=== PATIENT | female | born 1985 | race American Indian/Alaskan Native ===

== ENCOUNTER 2020-07-21 10:35 | Emergency (ER) | payer OTHER ==
--- NOTE | 2020-07-21 10:45 | Emergency Department Report ---
Blank Doc - Documentation Documentation: 34-year-old female that presents with n/v. This initial assessment/diagnostic orders/clinical plan/treatment(s) is/are subject to change based on patient's health status, clinical progression and re- assessment by fellow clinical providers in the ED. Further treatment and workup at subsequent clinical providers discretion. Patient/guardians urged not to elope from the ED as their condition may be serious if not clinically assessed and managed. Initial orders include: 1- Patient sent to [facility] for further evaluation and treatment 2- labs 3- UA
[2020-07-21 10:48] VITALS: BP 121/91
[2020-07-21 11:45] LABS: Bilirubin,Urine NEG (Negative); Blood,Urine NEG (Negative); Color,Urine Yellow (Yellow); Mucus,Urine FEW /HPF; Protein,Urine <15 mg/dL mg/dL (Negative); Urobilinogen,Urine < 2.0 mg/dL (<2.0)
[2020-07-21] MEDS ORDERED: ONDANSETRON 4 MG ODT TAB PO ONE (11:47)
--- NOTE | 2020-07-21 11:48 | Emergency Department Report ---
Vomiting/Diarrhea - HPI Chief Complaint: Nausea/Vomiting/Diarrhea Stated Complaint: VOMIT Time Seen by Provider: 07/21/20 10:44 Duration: 2 Days (For nausea) Severity: mild Nausea/Vomiting Severity: None Diarrhea Severity: None Pain Location: Suprapubic Pain Severity: None Symptoms: No Watery Diarrhea, No Bloody diarrhea, No Fever, No Able to Tolerate Fluids, No Recent Unusual Foods, No Recent Untreated Water, No Recent use of Antibiotics, No Family w/ Similar Symptoms, No Contacts w/ Similar Symptoms, No Rash, No Hematuria, No Recent URI Symptoms Other History: 34-year-old -[place] female with a past medical history of SVT presents to the emergency room for 2-day history of nausea and vomiting last night. Patient states that she went to work today and started vomiting everywhere. Patient states aggravating factors is eating anything and alleviating factors is not eating anything. Patient reports only mild abdominal pain is located in the suprapubic area. Patient denies any vaginal bleeding a little bit of vaginal discharge with a little bit of dysuria. She reports her last menstrual period was 07/11/2020 and is 2 para 2. Patient reports she has no known drug allergies currently takes no medications on a daily basis and does not have a primary care provider. ED Review of Systems ROS: Stated complaint: VOMIT Other details as noted in HPI Comment: All other systems reviewed and negative ED Past Medical Hx - Past Medical History Previous Medical History?: Yes Hx Hypertension: No Hx CVA: No Hx Heart Attack/AMI: No Hx Congestive Heart Failure: No Hx Diabetes: No Hx Deep Vein Thrombosis: No Hx Pulmonary Embolism: No Hx GERD: No Hx Liver Disease: No Hx Renal Disease: No Hx Sickle Cell Disease: No Hx Arthritis: No Hx Headaches / Migraines: No Hx Seizures: No Hx Kidney Stones: No Hx Psychiatric Treatment: No Hx Asthma: Yes Hx COPD: No Hx Tuberculosis: No Hx Dementia: No Hx HIV: No Additional medical history: SVT - Surgical History Past Surgical History?: Yes Hx Coronary Stent: No Hx Open Heart Surgery: No Hx Pacemaker: No Hx Internal Defibrillator: No Hx Cholecystectomy: No Hx Appendectomy: No Hx Breast Surgery: No - Social History Smoking Status: Never Smoker Substance Use Type: None - Medications Home Medications: Home Medications Medication Instructions Recorded Confirmed Last Taken Type Prednisone [predniSONE 10 mg 10 mg PO .TAPER #1 tab.ds.pk 12/25/15 Unknown Rx (6-Day Pack, 21 Tabs)] diphenhydrAMINE [Benadryl CAP] 25 mg PO Q6HR PRN #30 capsule 10/08/15 Unknown Rx Acetaminophen/Codeine [Tylenol #3] 1 tab PO Q6H PRN #20 tab 01/24/16 Unknown Rx Ibuprofen [Motrin] 600 mg PO Q8H PRN #30 tablet 01/24/16 Unknown Rx cephALEXin [Keflex] 500 mg PO Q6HR #40 capsule 01/24/16 Unknown Rx Ondansetron [Zofran Odt] 4 mg PO Q8HR #12 tab.rapdis 07/21/20 Unknown Rx Vomiting Diarrhea Exam - Exam General: Vital signs noted. No distress. Alert and acting appropriately. HEENT: Yes Moist Mucous Membranes, No Pharyngeal Erythema, No Pharyngeal Exudates, No Rhinorrhea, No Conjuctival Injection, No Frontal Tenderness, No Maxillary Tenderness Neck: No Adenopathy, No Rigidity Lungs: Yes Clear Lung Sounds, Yes Good Air Exchange, No Wheezes, No Stridor, No Cough, No Nasal Flaring, No Retractions, No Use of Accessory Muscles Heart exam: Regular: Yes, Murmur: No, Tachycardia: No Abdomen: Tenderness: Yes (Suprapubic), Peritoneal Signs: No, Distention: No, Hyperactive Bowel sounds: No Skin exam: Rash: No, Edema: No, Normal turgor: Yes Neurologic: Alert and oriented, no deficits. Musculoskeletal: Unremarkable. ED Course Vital Signs 07/21/20 10:47 Temperature 98.4 F Pulse Rate 91 H Respiratory 18 Rate Blood Pressure 121/91 O2 Sat by Pulse 100 Oximetry - Reevaluation(s) Reevaluation #1: 07/21/20 12:53 Patient has not vomited since being here in fast track. ED Medical Decision Making - Lab Data Result diagrams: 07/21/20 11:38 07/21/20 11:38 - Medical Decision Making 34-year-old -[place] female with a past medical history of SVT presents to the emergency room for 2-day history of nausea and vomiting last night. Patient states that she went to work today and started vomiting everywhere. Patient states aggravating factors is eating anything and alleviating factors is not eating anything. Patient reports only mild abdominal pain is located in the suprapubic area. Patient denies any vaginal bleeding a little bit of vaginal discharge with a little bit of dysuria. She reports her last menstrual period was 07/11/2020 and is 2 para 2. Patient reports she has no known drug allergies currently takes no medications on a daily basis and does not have a primary care provider. Patient's labs are stable. She responded well to the Zofran. I discussed with patient I will discharge home on Zofran increase her fluid intake advance her diet as tolerated and follow-up with her primary care provider. Critical care attestation.: If time is entered above; I have spent that time in minutes in the direct care of this critically ill patient, excluding procedure time. ED Disposition Clinical Impression: Acute nausea with nonbilious vomiting Disposition: - TO HOME OR SELFCARE Is pt being admited?: No Does the pt Need Aspirin: No Condition: Stable Instructions: Acute Nausea and Vomiting (ED) Additional Instructions: All your labs are stable. I recommend taking the Zofran as needed for the nausea and vomiting increase your fluid intake advance your diet as tolerated and follow-up with your primary care provider. Prescriptions: Ondansetron [Zofran Odt] 4 mg PO Q8HR #12 tab.rapdis Referrals: MINNA HUMPHREY MD [Primary Care Provider] - 3-5 Days Forms: Work/School Release Form(ED)
[2020-07-21 11:59] LABS: HCG Qualitative,Urine Negative (Negative)
[2020-07-21 12:04] LABS: Basophils % (Auto) 0.8 % (0.0-1.8); Eosinophils # (Auto) 0.1 K/mm3 (0.0-0.4); Eosinophils % (Auto) 1.3 % (0.0-4.3); Hematocrit 40.7 % (30.3-42.9); Hemoglobin 13.7 gm/dl (10.1-14.3); Lymphocytes # (Auto) 1.9 K/mm3 (1.2-5.4); Lymphocytes % (Auto) 30.8 % (13.4-35.0); Mean Corpuscular HGB Conc 34 % (30-34); Mean Corpuscular Volume 96 fl (79-97); Monocytes # (Auto) 0.5 K/mm3 (0.0-0.8); Monocytes % (Auto) 8.9 % (0.0-7.3); Platelet Count 296 K/mm3 (140-440); Red Blood Count 4.23 M/mm3 (3.65-5.03); Red Cell Distribution Width 14.7 % (13.2-15.2)
[2020-07-21 12:25] LABS: Alanine Aminotransferase 14 units/L (7-56); Albumin 4.1 g/dL (3.9-5); Blood Urea Nitrogen 10 mg/dL (7-17); Calcium 9.3 mg/dL (8.4-10.2); Hemolysis Index 10
[2020-07-21 12:26] LABS: BUN/Creatinine Ratio 14
== END 2020-07-21 13:42 | disposition home or self-care (01) ==
LOC: ED 10:35
DX: R11.2 Nausea with vomiting, unspecified (principal); J45.909 Unspecified asthma, uncomplicated; Z79.899 Other long term (current) drug therapy
CPT/HCPCS: 36415; 80053; 81001; 81025; 83690; 85025; 99283; Q0162

== ENCOUNTER 2020-09-13 17:21 | Emergency (ER) | payer OTHER ==
[2020-09-13 19:14] VITALS: BP 111/76
--- NOTE | 2020-09-13 20:16 | Event Note ---
ED Screening Note ED Screening Note: n/v that began two days ago states she has 2-3 episodes a day states she did have some diarrhea no abd pain no fever no blood in stool or vomit no dysuria no urinary frequency PMHx SVT no allergies to meds LNMP: 08/21/2020, unsure of This initial assessment/diagnostic orders/clinical plan/treatment(s) is/are subject to change based on patients health status, clinical progression and re- assessment by fellow clinical providers in the ED. Further treatment and workup at subsequent clinical providers discretion. Patient/guardian urged not to elope from the ED as their condition may be serious if not clinically assessed and managed. Initial orders include: labs, UA
[2020-09-13 21:01] LABS: Basophils % (Auto) 0.5 % (0.0-1.8); Eosinophils # (Auto) 0.2 K/mm3 (0.0-0.4); Eosinophils % (Auto) 2.9 % (0.0-4.3); Hematocrit 37.3 % (30.3-42.9); Lymphocytes # (Auto) 3.1 K/mm3 (1.2-5.4); Lymphocytes % (Auto) 42.2 % (13.4-35.0); Mean Corpuscular HGB Conc 35 % (30-34); Mean Corpuscular Volume 96 fl (79-97); Monocytes # (Auto) 0.7 K/mm3 (0.0-0.8); Monocytes % (Auto) 8.9 % (0.0-7.3); Platelet Count 245 K/mm3 (140-440); Red Blood Count 3.89 M/mm3 (3.65-5.03); Red Cell Distribution Width 13.9 % (13.2-15.2)
[2020-09-13 21:18] LABS: Alanine Aminotransferase 12 units/L (7-56); Albumin 4.1 g/dL (3.9-5); BUN/Creatinine Ratio 18; Blood Urea Nitrogen 14 mg/dL (7-17); Calcium 9.3 mg/dL (8.4-10.2); Hemolysis Index 5
[2020-09-13 22:28] LABS: Bacteria,Urine 4+ /HPF (Negative); Bilirubin,Urine NEG (Negative); Blood,Urine SM (Negative); Color,Urine Straw (Yellow); Protein,Urine <15 mg/dL mg/dL (Negative); Urobilinogen,Urine < 2.0 mg/dL (<2.0)
[2020-09-14] MEDS ORDERED: ONDANSETRON 4 MG ODT TAB PO STA (01:00)
[2020-09-14] MEDS ORDERED: HYOSCYAMINE SUBL 0.125 MG TAB SL ONE (01:00)
--- NOTE | 2020-09-14 01:02 | Emergency Department Report ---
ED N/V/D HPI - General Chief complaint: Nausea/Vomiting/Diarrhea Stated complaint: VOMIT/NAUSEA/FATIGUE Time Seen by Provider: 09/13/20 20:15 Source: patient Mode of arrival: Ambulatory Limitations: No Limitations - History of Present Illness MD complaint: nausea, vomiting -: days(s) (2) Description of Vomiting: food contents, watery, bilious Description of Diarrhea: mucous Associated Abdominal Pain: Yes (minimal) Location: diffuse Severity: mild Pain Scale: 2 Quality: aching Consistency: intermittent Worsens with: eating Context: possible food poisoning, sick contacts Associated Symptoms: loss of appetite, malaise, nausea/vomiting - Related Data Previous Rx's Medication Instructions Recorded Last Taken Type Prednisone [predniSONE 10 mg 10 mg PO .TAPER #1 tab.ds.pk 10/08/15 Unknown Rx (6-Day Pack, 21 Tabs)] diphenhydrAMINE [Benadryl CAP] 25 mg PO Q6HR PRN #30 capsule 10/08/15 Unknown Rx Acetaminophen/Codeine [Tylenol #3] 1 tab PO Q6H PRN #20 tab 01/24/16 Unknown Rx Ibuprofen [Motrin] 600 mg PO Q8H PRN #30 tablet 01/24/16 Unknown Rx cephALEXin [Keflex] 500 mg PO Q6HR #40 capsule 01/24/16 Unknown Rx Ondansetron [Zofran Odt] 4 mg PO Q8HR #12 tab.rapdis 07/21/20 Unknown Rx Allergies Allergy/AdvReac Type Severity Reaction Status Date / Time No Known Allergies Allergy Verified 06/04/15 07:37 ED Review of Systems ROS: Stated complaint: VOMIT/NAUSEA/FATIGUE Other details as noted in HPI Comment: All other systems reviewed and negative ED Past Medical Hx - Past Medical History Previous Medical History?: Yes Hx Hypertension: No Hx CVA: No Hx Heart Attack/AMI: No Hx Congestive Heart Failure: No Hx Diabetes: No Hx Deep Vein Thrombosis: No Hx Pulmonary Embolism: No Hx GERD: No Hx Liver Disease: No Hx Renal Disease: No Hx Sickle Cell Disease: No Hx Arthritis: No Hx Headaches / Migraines: No Hx Seizures: No Hx Kidney Stones: No Hx Psychiatric Treatment: No Hx Asthma: Yes Hx COPD: No Hx Tuberculosis: No Hx Dementia: No Hx HIV: No Additional medical history: SVT - Surgical History Past Surgical History?: No Hx Coronary Stent: No Hx Open Heart Surgery: No Hx Pacemaker: No Hx Internal Defibrillator: No Hx Cholecystectomy: No Hx Appendectomy: No Hx Breast Surgery: No - Social History Smoking Status: Never Smoker Substance Use Type: None - Medications Home Medications: Home Medications Medication Instructions Recorded Confirmed Last Taken Type Prednisone [predniSONE 10 mg 10 mg PO .TAPER #1 tab.ds.pk 10/08/15 Unknown Rx (6-Day Pack, 21 Tabs)] diphenhydrAMINE [Benadryl CAP] 25 mg PO Q6HR PRN #30 capsule 10/08/15 Unknown Rx Acetaminophen/Codeine [Tylenol #3] 1 tab PO Q6H PRN #20 tab 01/24/16 Unknown Rx Ibuprofen [Motrin] 600 mg PO Q8H PRN #30 tablet 01/24/16 Unknown Rx cephALEXin [Keflex] 500 mg PO Q6HR #40 capsule 01/24/16 Unknown Rx Ondansetron [Zofran Odt] 4 mg PO Q8HR #12 tab.rapdis 07/21/20 Unknown Rx ED Physical Exam - General Limitations: No Limitations General appearance: alert, in no apparent distress - Head Head exam: Present: atraumatic, normocephalic - Eye Eye exam: Present: normal appearance - ENT ENT exam: Present: mucous membranes moist - Neck Neck exam: Present: normal inspection - Respiratory Respiratory exam: Present: normal lung sounds bilaterally. Absent: respiratory distress - Cardiovascular Cardiovascular Exam: Present: regular rate, normal rhythm. Absent: systolic murmur, diastolic murmur, rubs, gallop - GI/Abdominal GI/Abdominal exam: Present: soft, normal bowel sounds. Absent: distended, tenderness, guarding, rebound, hyperactive bowel sounds, hypoactive bowel sounds, mass, bruit, pulsatile mass - Extremities Exam Extremities exam: Present: normal inspection - Back Exam Back exam: Present: normal inspection - Neurological Exam Neurological exam: Present: alert, oriented X3 - Psychiatric Psychiatric exam: Present: normal affect, normal mood - Skin Skin exam: Present: warm, dry, intact, normal color. Absent: rash ED Course Vital Signs 09/13/20 19:13 Temperature 98.2 F Pulse Rate 76 Respiratory 18 Rate Blood Pressure 111/76 [Right] O2 Sat by Pulse 100 Oximetry ED Medical Decision Making - Lab Data Result diagrams: 09/13/20 20:47 09/13/20 20:47 Critical care attestation.: If time is entered above; I have spent that time in minutes in the direct care of this critically ill patient, excluding procedure time. ED Disposition Condition: Stable Referrals: PRIMARY CARE,MD [Primary Care Provider] - 3-5 Days
== END 2020-09-14 03:10 | disposition home or self-care (01) ==
LOC: ED 17:21
DX: R11.2 Nausea with vomiting, unspecified (principal); R10.84 Generalized abdominal pain; R63.0 Anorexia; J45.909 Unspecified asthma, uncomplicated; Z79.1 Long term (current) use of non-steroidal anti-inflammatories (NSAID); Z79.899 Other long term (current) drug therapy
CPT/HCPCS: 36415; 80053; 81001; 83690; 84703; 85025; Q0162